=== PATIENT | male | born 1950 | race Caucasian/White ===

== ENCOUNTER 2018-01-29 06:37 | Day surgery (SDC) | payer OTHER ==
[2018-01-29] MEDS ORDERED: LIDOCAINE 1% 20 ML MDV ID STA (07:18)
[2018-01-29] MEDS ORDERED: DIPRIVAN 20 ML VIAL IVP ONE (08:23)
[2018-01-29] MEDS ORDERED: SUBLIMAZE ONE (08:23)
[2018-01-29 10:26] VITALS: BP 110/62; TEMP 98.5
--- NOTE | 2018-01-30 10:33 | OP ---
PROCEDURE: COLONOSCOPY TO THE CECUM WITH SNARE POLYPECTOMY. ENDOSCOPIST: Jhonatan WILLSON M.D. INDICATION: HISTORY OF POLYPS INSTRUMENT: [facility] [employer]-190. MEDICATION: PER ANESTHESIA. PROCEDURE: The patient was positioned for colonoscopy. The digital rectal exam was negative. The colonoscope was inserted through the anus and advanced to the cecum. The cecum was identified using the ileocecal valve and the appendiceal orifice as landmarks. The scope was slowly withdrawn through an adequately prepped colon. Ranger Bowel Prep Score 2+3+3=8. A 3mm polyp is removed at the hepatic flexure using cold snare polypectomy. Diverticulosis in the left colon. Retroflex exam reveals hemorrhoids. No other abnormalities were noted. The patient tolerated the procedure well without immediate complication. Withdraw time 9 minutes and 7 seconds. PLAN: 1. Repeat colonoscopy again in 5 years. CC: Dr. Jimmy AZUL
== END 2018-01-29 09:25 | disposition home or self-care (01) ==
LOC: SURG 06:37
PROVIDERS: ATTEND Internal Medicine Gastroenterology
DX: Z86.010 Personal history of colon polyps (principal); D12.3 Benign neoplasm of transverse colon

== ENCOUNTER 2018-02-26 12:04 | Outpatient (CLI) ==
--- NOTE | 2018-02-26 16:29 | CT ---
EXAM: CT of the abdomen pelvis without contrast History: Right-sided abdominal pain. History of appendectomy Technique: Multiplanar CT images through the abdomen pelvis were obtained without the administration of IV contrast Findings: Heart is borderline enlarged. Calcified granulomas seen within the lower lungs. Calcifie d pleural plaques are noted consistent with asbestos related pleural disease. Spleen is not seen and likely has been surgically removed. No focal liver lesions. No peripancreati c inflammation. A few small nodules are seen within the left upper quadrant probably related to sple nules. 1.2 cm benign left adrenal adenoma. Right adrenal gland is unremarkable. No renal stones an d no hydronephrosis. No ureteral calculi. No dilated loops of bowel. Small fat-containing umbilica l hernia. Colonic diverticulosis. No bladder wall thickening. Postsurgical changes within the righ t inguinal region. No perirectal inflammation. No free air and no ascites. No inflammatory strandi ng. Status post appendectomy. Prostate is not significantly enlarged. Evaluation for lymph nodes i s limited due to the lack of contrast administration but no pathologically enlarged lymph nodes are a ppreciated. A few small fat-containing ventral hernias. Impression: 1. No acute intra-abdominal or pelvic process. 2. Small benign left adrenal adenoma. 3. Colonic diverticulosis. 4. Small nodules within the left upper quadrant are probably splenules. 5. Asbestos related pleural disease. 6. Small ventral hernias containing only fat.
== END 2018-02-26 12:05 | disposition home or self-care (01) ==
LOC: RAD 12:04
PROVIDERS: ATTEND Internal Medicine
DX: R10.9 Unspecified abdominal pain (principal)
CPT/HCPCS: 74176

== ENCOUNTER 2018-10-24 07:50 | Outpatient (CLI) | END 2018-10-24 07:51 | disposition home or self-care (01) | LOC: RAD 07:50 → LAB 07:51 | PROVIDERS: ATTEND Internal Medicine | DX: Z85.71 Personal history of Hodgkin lymphoma (principal) | CPT/HCPCS: 36415; 82565 ==

== ENCOUNTER 2018-10-25 07:55 | Outpatient (CLI) ==
--- NOTE | 2018-10-25 09:31 | CT ---
EXAM: CT THORAX HISTORY: Lymphoma. TECHNIQUE: CT thorax with and without intravenous contrast. Multiplanar images presented. 75 ml Om nipaque COMPARISON: None FINDINGS: Heart size is within normal limits. There is no pericardial effusion. Minimal atherosclerotic disea se. There are scattered mediastinal lymph nodes some which are calcified. The largest noncalcified lymph node is in the left hilum with a short axis of approximately 1 cm. A similar sized pretracheal lymph node is also seen. There are scattered partially calcified pleural plaques bilaterally. No acute infiltrates or vascula r congestion. No pleural fluid or pneumothorax. The bones reveal mild to moderate degenerative endplate and disc disease. IMPRESSION: 1. A few scattered mediastinal and hilar lymph nodes, some which are calcified. There are two borde rline enlarged noncalcified lymph nodes measuring about 1 cm short axis. 2. Partially calcified bilateral pleural plaques.
== END 2018-10-25 07:56 | disposition home or self-care (01) ==
LOC: RAD 07:55
PROVIDERS: ATTEND Internal Medicine
DX: Z85.71 Personal history of Hodgkin lymphoma (principal)